=== PATIENT | male | born 1955 | race Caucasian/White ===

== ENCOUNTER 2021-08-11 04:07 | Inpatient (IN) | payer MEDICARE, OTHER, MEDICAID ==
[2021-08-11] MEDS ORDERED: AMLODIPINE BESY10 MG PO (06:37)
[2021-08-11] MEDS ORDERED: ADULT LOW DOSE81 MG PO (06:38)
[2021-08-11] MEDS ORDERED: CELEXA20 MG PO (06:40)
[2021-08-11] MEDS ORDERED: LISINOPRIL40 MG PO (06:41)
[2021-08-11] MEDS ORDERED: VITAMIN D3125 MCG PO (06:43)
[2021-08-11] MEDS ORDERED: [UNRECOGNIZED DRUG - OTHER] T (06:45)
[2021-08-11] MEDS ORDERED: DEPAKOTE SPRIN125 MG PO (06:46)
[2021-08-11] MEDS ORDERED: NAMENDA10 MG PO (06:47)
[2021-08-11] MEDS ORDERED: RIVASTIGMINE TAR6 M1 PO (06:48)
[2021-08-11 10:33] VITALS: BP 124/66
[2021-08-11 17:31] LABS: BILIRUBIN Negative (Negative); BLOOD Negative (Negative); CLARITY Clear (Clear); COLOR Yellow (Yellow); GLUCOSE Negative (Negative); KETONE Trace (Negative); LEUKO ESTERASE Negative (Negative); NITRITE Negative (Negative); SPECIFIC GRAVITY 1.015 (1.001-1.030); UROBILINOGEN 0.2 E.U./dl (0.0-1.0)
[2021-08-11 17:43] LABS: BACTERIA TRACE; EPITHELIAL CELLS 0-2; HYALINE CAST 0-2; MUCOUS TRACE; RBC 0-2 rbc/hpf (0-2); WBC 0-2 wbc/hpf (0-5)
[2021-08-11 17:44] VITALS: BP 140/82
[2021-08-11 20:00] VITALS: BP 161/86
[2021-08-12 06:36] LABS: BASO # 0.1 10*3/uL (0.0-0.1); BASO % 0.6 % (0.0-1.0); EOS # 0.5 10*3/uL (0.0-0.4); EOS % 4.7 % (1.0-4.0); HEMATOCRIT 40.8 % (42.0-52.0); LYMPH # 2.2 10*3/uL (1.3-4.4); LYMPH % 19.4 % (27.0-41.0); MEAN CELL VOLUME 87.4 fl (80.0-94.0); MEAN CORPUSCULAR HGB 26.8 pg (27.0-31.0); MEAN CORPUSCULAR HGB CONC 30.6 g/dl (33.0-37.0); MEAN PLATELET VOLUME 11.1 fl (9.6-12.3); MONO # 1.5 10*3/uL (0.1-1.0); MONO % 13.1 % (3.0-9.0); NEUT # 6.9 10*3/uL (2.3-7.9); NEUT % 61.7 % (47.0-73.0); PLATELET COUNT AUTOMATED 200 10*3/uL (130-400); RED BLOOD COUNT 4.67 10*6/uL (4.50-5.90); RED CELL DISTRI WIDTH 15.9 % (0-14.5); WHITE BLOOD COUNT 11.2 10*3/uL (4.8-10.8)
[2021-08-12 06:43] LABS: ALKALINE PHOSPHATASE 79 U/L (45-117); BUN 26 mg/dl (7-24); CHLORIDE 106 mmol/L (98-107); CHOLESTEROL 175 mg/dL (<200); LDL CHOLESTEROL 105 mg/dL (9-159); POTASSIUM 4.2 mmol/L (3.5-5.1); SGOT/AST 28 IU/L (3-35); SGPT/ALT 30 U/L (12-78); SODIUM 138 mmol/L (136-145); TOTAL PROTEIN 6.9 gm/dL (6.4-8.2); TRIGLYCERIDES 158 mg/dl (<150)
[2021-08-12 06:53] LABS: THYROID STIM HORMONE (HS) 0.768 uIU/ml (0.358-4.75)
[2021-08-12 08:00] LABS: VITAMIN D, 25-HYDROXY 55.2 ng/mL (30-100)
[2021-08-12 08:09] VITALS: BP 142/80
[2021-08-12 20:00] VITALS: BP 127/58
[2021-08-13 01:58] VITALS: BP 158/80
[2021-08-13 08:00] VITALS: BP 140/90
[2021-08-13 19:23] VITALS: BP 148/75
[2021-08-14 08:00] VITALS: BP 158/71
[2021-08-14 20:00] VITALS: BP 104/60
[2021-08-15 08:08] VITALS: BP 141/69
[2021-08-15 20:00] VITALS: BP 148/55
[2021-08-16 08:00] VITALS: BP 140/60
[2021-08-16 20:00] VITALS: BP 141/86
[2021-08-17 08:00] VITALS: BP 146/70
[2021-08-17 20:00] VITALS: BP 136/78
[2021-08-18 07:59] VITALS: BP 149/78
[2021-08-18 19:36] VITALS: BP 121/87
[2021-08-19 07:32] VITALS: BP 142/68
[2021-08-19 20:00] VITALS: BP 110/82
[2021-08-20 06:30] LABS: HEMATOCRIT 38.1 % (42.0-52.0); MEAN CELL VOLUME 87.6 fl (80.0-94.0); MEAN CORPUSCULAR HGB 27.1 pg (27.0-31.0); MEAN PLATELET VOLUME 10.2 fl (9.6-12.3); PLATELET COUNT AUTOMATED 196 10*3/uL (130-400); RED BLOOD COUNT 4.35 10*6/uL (4.50-5.90); RED CELL DISTRI WIDTH 15.6 % (0-14.5); WHITE BLOOD COUNT 12.1 10*3/uL (4.8-10.8)
[2021-08-20 07:00] LABS: BUN 28 mg/dl (7-24); CHLORIDE 109 mmol/L (98-107); CREATININE 1.19 mg/dL (0.70-1.30); POTASSIUM 4.5 mmol/L (3.5-5.1); SODIUM 142 mmol/L (136-145)
[2021-08-20 08:00] VITALS: BP 137/77
[2021-08-20 08:11] LABS: PLATELET SUFFICIENCY NORMAL (NORMAL); TOTAL CELLS COUNTED 100 #CELLS
[2021-08-20 19:48] VITALS: BP 134/62
[2021-08-21 08:03] VITALS: BP 127/54
[2021-08-21 17:37] LABS: BILIRUBIN Negative (Negative); BLOOD Negative (Negative); CLARITY Clear (Clear); COLOR Yellow (Yellow); GLUCOSE Negative (Negative); KETONE Trace (Negative); LEUKO ESTERASE Negative (Negative); NITRITE Negative (Negative); PH 5.5 (4.5-8.0); UROBILINOGEN 0.2 E.U./dl (0.0-1.0)
[2021-08-21 18:00] LABS: BACTERIA TRACE; EPITHELIAL CELLS 0-2; RBC 0-2 rbc/hpf (0-2); WBC 0-2 wbc/hpf (0-5)
[2021-08-21 19:48] VITALS: BP 126/68
[2021-08-21] MEDS ORDERED: VITAMIN D3125 MC1 PO (22:07)
[2021-08-21] MEDS ORDERED: DIVALPROEX SOD125 M1 PO (22:07)
[2021-08-21] MEDS ORDERED: ROZEREM8 MG PO (22:07)
[2021-08-21] MEDS ORDERED: INVEGA9 MG PO (22:07)
[2021-08-21] MEDS ORDERED: PROVERA PO (22:07)
[2021-08-21] MEDS ORDERED: LORAZEPAM1 MG PO (22:07)
[2021-08-22 07:28] VITALS: BP 124/74
== END 2021-08-22 16:25 | DRG 883 ==
LOC: 3N 04:07
PROVIDERS: Registered Nurse; ADMIT Psychiatry & Neurology Psychiatry; ATTEND Psychiatry & Neurology Psychiatry
DX: F63.81 Intermittent explosive disorder (principal); J44.9 Chronic obstructive pulmonary disease, unspecified; I25.10 Atherosclerotic heart disease of native coronary artery without angina pectoris; F03.90 Unspecified dementia, unspecified severity, without behavioral disturbance, psychotic disturbance, mood disturbance, and anxiety; I10 Essential (primary) hypertension; Z20.822 Contact with and (suspected) exposure to COVID-19; F32.9 Major depressive disorder, single episode, unspecified; E78.5 Hyperlipidemia, unspecified; E66.09 Other obesity due to excess calories; Z90.49 Acquired absence of other specified parts of digestive tract; Z80.0 Family history of malignant neoplasm of digestive organs; Z88.0 Allergy status to penicillin; Z79.82 Long term (current) use of aspirin; Z79.899 Other long term (current) drug therapy